=== PATIENT | male | born 1955 | race American Indian/Alaskan Native ===

== ENCOUNTER 2017-10-02 15:05 | Emergency (ER) | payer SELFPAY ==
[2017-10-02 15:29] VITALS: BP 159/72
[2017-10-02] MEDS ORDERED: TETRACAINE 0.5% OU ONE (18:20)
--- NOTE | 2017-10-02 18:26 | Emergency Department Report ---
Blank Doc - Documentation Documentation: Patient is a 62-year-old -Citizen Of [place] male who is presenting with left eye pain. Patient has a baseline blurry vision in his left eye secondary to glaucoma. Patient been noncompliant with his meds. Patient has some increased pain with the left eye S1 to 2 days. Patient states the pain as a 6 out of 10 in severity patient was assuming that he had a spider bite to the left. Brief physical exam patient's left eye is erythematous and scleral injection is no exudate present he does have some tenderness when palpating the eye over the lid. Patient will have a pressures checked in the side to check for acute angle closure glaucoma
--- NOTE | 2017-10-02 18:38 | Emergency Department Report ---
ED Eye Problem HPI - General Chief complaint: Eye Problems Stated complaint: LEFT EYE PAIN Time Seen by Provider: 10/02/17 18:05 Source: patient Mode of arrival: Ambulatory Limitations: No Limitations - History of Present Illness Initial comments: 62-year-old male past medical history glaucoma, hypertension presents with complaint of approximately 3 days of left eye discomfort. Denies any direct trauma eye. States he ran out of his glaucoma medicines approximately 2 weeks ago. Pt states he is legally blind in left eye and has been so for several years. States he has mild headache intermittent for over 1 week. Denies CP, SOB , palpitation, nausea, vomiting, diarrhea. Denies fever, chills, new paraesthesias. States he has had some discharge from left eye. MD chief complaint: eye pain Onset/Timin -: week(s) Onset Description: gradual Location: left eye If Injury: none Eye Symptoms: pain Severity: mild Severity scale (0 -10): 5 If Pain, Quality: aching Consistency: intermittent Associated Symptoms: none Treatments Prior to Arrival: none - Related Data Patient Tetanus UTD: Yes Previous Rx's Medication Instructions Recorded Last Taken Type Acetaminophen [Acetaminophen TAB] 500 mg PO Q6HR PRN #20 tablet 10/02/17 Unknown Rx Latanoprost [Xalatan] 1 drop OP QHS #1 bottle 10/02/17 Unknown Rx Timolol 0.25% (Nf) [Timoptic Ophth 1 drops OP BID #1 bottle 10/02/17 Unknown Rx Soln 0.25%] Tobramycin 0.3% [Tobrex] 1 drop OS Q4H #1 bottle 10/02/17 Unknown Rx Allergies Allergy/AdvReac Type Severity Reaction Status Date / Time Penicillins Allergy Unknown Verified 10/02/17 15:29 ED Review of Systems ROS: Stated complaint: LEFT EYE PAIN Other details as noted in HPI Constitutional: denies: chills, fever Eyes: eye pain (for over 1 week). denies: eye discharge, vision change ENT: denies: ear pain, throat pain Respiratory: denies: cough, shortness of breath, wheezing Cardiovascular: denies: chest pain, palpitations Endocrine: no symptoms reported Gastrointestinal: denies: abdominal pain, nausea, diarrhea Genitourinary: denies: urgency, dysuria Musculoskeletal: denies: back pain, joint swelling, arthralgia Skin: denies: rash, lesions Neurological: denies: headache, weakness, paresthesias Psychiatric: denies: anxiety, depression Hematological/Lymphatic: denies: easy bleeding, easy bruising ED Past Medical Hx - Past Medical History Additional medical history: glaucoma - Surgical History Past Surgical History?: No - Social History Smoking Status: Never Smoker Substance Use Type: Alcohol - Medications Home Medications: Home Medications Medication Instructions Recorded Confirmed Last Taken Type Acetaminophen [Acetaminophen TAB] 500 mg PO Q6HR PRN #20 tablet 10/02/17 Unknown Rx Latanoprost [Xalatan] 1 drop OP QHS #1 bottle 10/02/17 Unknown Rx Timolol 0.25% (Nf) [Timoptic Ophth 1 drops OP BID #1 bottle 10/02/17 Unknown Rx Soln 0.25%] Tobramycin 0.3% [Tobrex] 1 drop OS Q4H #1 bottle 10/02/17 Unknown Rx ED Physical Exam - General Limitations: No Limitations General appearance: alert, in no apparent distress - Head Head exam: Present: atraumatic, normocephalic - Eye Eye exam: Present: normal appearance, PERRL, EOMI - Expanded Eye Exam Expanded Pupils: Regular, Round: Bilateral, Reactive: Bilateral Sclera/Conjunctival: Normal Inspection: Bilateral Visual acuity (R) = 20/: 25 Visual acuity (L) = 20/: 100 IOP measured with: Tonopen - ENT ENT exam: Present: mucous membranes moist - Neck Neck exam: Present: normal inspection, full ROM - Respiratory Respiratory exam: Present: normal lung sounds bilaterally. Absent: respiratory distress - Cardiovascular Cardiovascular Exam: Present: regular rate, normal rhythm. Absent: systolic murmur, diastolic murmur, rubs, gallop - GI/Abdominal GI/Abdominal exam: Present: soft (abdomne soft, nontender, nondistended), normal bowel sounds - Rectal Rectal exam: Present: deferred - Extremities Exam Extremities exam: Present: normal inspection - Back Exam Back exam: Present: normal inspection - Neurological Exam Neurological exam: Present: alert, oriented X3, CN II-XII intact, normal gait - Expanded Neurological Exam Expanded Patient oriented to: Present: person, place, time Cranial nerves: EOM's Intact: Normal, Facial Sensation: Normal Cerebellar function: Finger to Nose: Normal, Heel to East: Normal, Romberg: Normal Sensory exam: Upper Extremity Light Touch: Normal, Lower Extremity Light Touch: Normal Motor strength exam: RUE: 5, LUE: 5, RLE: 5, LLE: 5 Best Eye Response ([place]): (4) open spontaneously Best Motor Response ([place]): (6) obeys commands Best Verbal Response ([place]): (5) oriented [place] Total: 15 - Psychiatric Psychiatric exam: Present: normal affect, normal mood - Skin Skin exam: Present: warm, dry, intact, normal color. Absent: rash ED Course Vital Signs 10/02/17 10/02/17 15:26 19:00 Temperature 98.6 F Pulse Rate 82 Respiratory 18 18 Rate Blood Pressure 159/72 O2 Sat by Pulse 99 Oximetry ED Medical Decision Making - Medical Decision Making A/P: Conjunctivitis left eye 1- intraocular pressure left eye 8, 9, 18, 11 2- refill patient's medicines as he stated he has not had them in approximately 2 weeks. timolol+ latanosprost 3- tobramycin drops left eye 4- visual acuity 20/25 right eye, 20/100 left eye. 20/70 overall. I advised patient to follow up with ophthalmology Critical care attestation.: If time is entered above; I have spent that time in minutes in the direct care of this critically ill patient, excluding procedure time. ED Disposition Clinical Impression: Left eye pain Conjunctivitis, left eye Qualifiers: Conjunctivitis type: acute Acute conjunctivitis type: unspecified Qualified Code(s): H10.32 - Unspecified acute conjunctivitis, left eye Disposition: DC- TO HOME OR SELFCARE Is pt being admited?: No Does the pt Need Aspirin: No Condition: Stable Instructions: Timolol (Into the eye), Latanoprost (Into the eye), Conjunctivitis (ED), Glaucoma (ED), Eye Pain (ED) Prescriptions: Latanoprost [Xalatan] 1 drop OP QHS #1 bottle Acetaminophen [Acetaminophen TAB] 500 mg PO Q6HR PRN #20 tablet PRN Reason: Pain Timolol 0.25% (Nf) [Timoptic Ophth Soln 0.25%] 1 drops OP BID #1 bottle Tobramycin 0.3% [Tobrex] 1 drop OS Q4H #1 bottle Referrals: SAMY BARRAZA MD [Staff Physician] - 3-5 Days GEOVANI FORMAN MD [Staff Physician] - 3-5 Days Time of Disposition: 18:56
[2017-10-02] MEDS ORDERED: NORCO 5/325 ONE (18:54)
[2017-10-02] MEDS ORDERED: NORCO 5/325 PO ONE (18:54)
== END 2017-10-02 19:15 | disposition home or self-care (01) ==
LOC: ED 15:05
DX: H10.32 Unspecified acute conjunctivitis, left eye (principal); Z88.0 Allergy status to penicillin
CPT/HCPCS: 99282

== ENCOUNTER 2018-12-04 12:42 | Emergency (ER) | payer OTHER ==
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
[2018-12-04 13:16] VITALS: BP 138/70
[2018-12-04] MEDS ORDERED: IBUPROFEN PO ONE (15:07)
[2018-12-04] MEDS ORDERED: IBUPROFEN ONE (15:07)
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
== END 2018-12-04 15:53 | disposition home or self-care (01) ==
LOC: ED 12:42
DX: M54.5 Low back pain (principal); Z79.899 Other long term (current) drug therapy; Z88.0 Allergy status to penicillin; V43.52XA Car driver injured in collision with other type car in traffic accident, initial encounter; Y93.89 Activity, other specified; Y92.488 Other paved roadways as the place of occurrence of the external cause; Y99.8 Other external cause status
CPT/HCPCS: 72040; 72100; 99283